=== PATIENT | female | born 1975 | race Caucasian/White ===

== ENCOUNTER → 2024-08-31 | Outpatient (CLI) | payer OTHER, SELFPAY ==
[2024-08-31 08:06] LABS: Collection Type, Urine Clean Catch
[2024-08-31 08:36] LABS: Basophils # (Auto) 0.1 Thou/mm3 (0.0-0.2); Basophils % (Auto) 1 % (0-2.5); Eosinophils # (Auto) 0.1 Thou/mm3 (0.0-0.5); Eosinophils % (Auto) 2 % (0-10); Hematocrit 36.9 % (36.0-46.0); Hemoglobin 12.2 g/dL (12.0-16.0); Immature Granulocytes % (Auto) 0 % (0-0); Immature Granulocytes Auto 0.01 Thou/mm3 (0.00-0.00); Lymphocytes # (Auto) 1.7 Thou/mm3 (1.0-4.8); Lymphocytes % (Auto) 29 % (10-50); Mean Corpuscular HGB Conc 33.1 g/dl (31.0-37.0); Mean Corpuscular Volume 97 fL (80-100); Monocytes # (Auto) 0.5 Thou/mm3 (0.0-0.8); Monocytes % (Auto) 9 % (0-12); Neutrophils # (Auto) 3.6 Thou/mm3 (1.8-7.7); Neutrophils % (Auto) 60 % (37-80); Nucleated Red Blood Cell % 0 /100 WBC (0); Platelet Count 179 Thou/mm3 (140-440); RDW Standard Deviation 42.7 fL (36.4-46.3); Red Blood Count 3.81 Miln/mm3 (4.00-5.20)
[2024-08-31 08:39] LABS: Bacteria,Urine Rare; Bilirubin,Urine Negative (Negative); Blood,Urine Negative (Negative); Clarity,Urine Clear (Clear/Hazy); Color,Urine Yellow (Lt Yel-Yel); Culture Indicated,Urine Not Indicated; Glucose, Urine Negative (Negative); Ketones,Urine Negative (Negative); Leukocyte Esterase,Urine Negative (Negative); Nitrite,Urine Negative (Negative); Protein,Urine Trace (Neg - Trace); RBC,Urine 4 /hpf (0-3); Specific Gravity,Urine 1.022 (1.001-1.035); Squamous Epithelial Cell,Urine 5 /hpf (0-5); Urobilinogen,Urine Negative mg/dL (0.0-1.0); WBC,Urine 5 /hpf (0-5)
[2024-08-31 08:46] LABS: Alanine Aminotransferase 14 U/L (10-49); Albumin, Serum 4.6 gm/dL (3.5-5.0); Albumin/Globulin Ratio 2.2 (1.2-2.2); Alkaline Phosphatase 61 U/L (46-116); Anion Gap 6 (7-16); BUN/Creatinine Ratio 11 Ratio (12-20); Blood Urea Nitrogen 9 mg/dL (9-23); Calcium 9.4 mg/dL (8.3-10.6); Calcium (Corrected) 9.4 mg/dL (8.5-10.1); Carbon Dioxide 30.4 mMol/L (20.0-31.0); Cardiac Risk Estimate 3.3 RATIO (3.7-5.6); Chloride 104 mMol/L (98-107); Cholesterol 202 mg/dL (132-200); Creatinine (Component) 0.8 mg/dL (0.6-1.3); Free T4 (Free Thyroxine) 1.11 ng/dL (0.89-1.76); Globulin 2.1 gm/dL (2.3-3.5); Glucose 86 mg/dL (74-106); HDL Cholesterol 62 mg/dL (40-60); LDL Cholesterol,Calculated 128 mg/dL (0-130); Osmolality,Calculated 277 (275-295); Potassium 4.1 mMol/L (3.4-5.1); Sodium 140 mMol/L (136-145); Thyroid Stimulating Hormone 2.39 uIU/mL (0.55-4.78); Total Protein 6.7 gm/dL (5.7-8.2); Triglycerides 58 mg/dL (30-150); eGFR > 60 See Note
[2024-08-31 08:49] LABS: Vitamin D 25 Hydroxy Total 16.7 ng/mL (7.3-40.2)
[2024-08-31 09:01] LABS: Aspartate Amino Transferase < 8 U/L (0-34)
[2024-08-31 09:40] LABS: T4 (Thyroxine) 6.1 mcg/dL (4.5-10.9)
[2024-09-05 06:54] LABS: T3,Total* 92 ng/dL (76-181); Thyroglobulin Antibodies* <1 IU/mL (< OR = 1); Thyroid Peroxidase Antibodies* 1 IU/mL (<9)
== END | disposition home or self-care (01) ==
LOC: COPL 06:43
PROVIDERS: PCP Family Medicine; Referring Provider Nurse Practitioner Family; Visit Provider Nurse Practitioner Family
DX: Z00.00 Encounter for general adult medical examination without abnormal findings (principal); N39.0 Urinary tract infection, site not specified; E55.9 Vitamin D deficiency, unspecified; E03.9 Hypothyroidism, unspecified; Z13.0 Encounter for screening for diseases of the blood and blood-forming organs and certain disorders involving the immune mechanism; Z13.29 Encounter for screening for other suspected endocrine disorder; Z13.220 Encounter for screening for lipoid disorders; Z13.1 Encounter for screening for diabetes mellitus; Z83.3 Family history of diabetes mellitus; Z13.89 Encounter for screening for other disorder; Z13.21 Encounter for screening for nutritional disorder
CPT/HCPCS: 36415; 80053; 80061; 81001; 82306; 84436; 84439; 84443; 84480; 85025; 86376; 86800

== ENCOUNTER 2025-06-07 20:32 | Emergency (ER) | payer OTHER, SELFPAY ==
[2025-06-07 20:32] VITALS: BMI 21.6
--- NOTE | 2025-06-07 22:10 | PD.EDADDENDU ---
Emergency Room Addendum Addendum Narrative: When I looked for the patient to start my evaluation, I was told the patient eloped. Dominic Augustin MD
--- NOTE | 2025-06-07 22:20 | PC.NURSE ---
called for pt from lobby/outside, no [phone] [phone]
--- NOTE | 2025-06-07 23:41 | PC.NURSE ---
PT WAS CALLED THREE TIMES [phone], [id number], [id number] N/A.
== END 2025-06-07 23:40 | disposition left against medical advice (07) ==
PROVIDERS: Emergency Provider Emergency Medicine
DX: Z53.21 Procedure and treatment not carried out due to patient leaving prior to being seen by health care provider (principal)
CPT/HCPCS: 99281

== ENCOUNTER 2025-06-07 23:56 | Emergency (ER) | payer OTHER, SELFPAY ==
[2025-06-07 23:57] VITALS: BMI 21.6
[2025-06-08 00:17] VITALS: BP 95/67; PULSE 118; RESP 18; TEMP 37.1; O2SAT 97
--- NOTE | 2025-06-08 00:43 | XR_ITS ---
Examination: CT abdomen with intravenous contrast CT pelvis with intravenous contrast 2-D coronal reconstructions 2-D sagittal reconstructions Date and time of exam:June 08, 2025, 0200 hrs.,. Indications: Abdominal pain, nausea vomiting diarrhea, no bowel movement 9 hours.. CTDI: vol (mGy) 5. DLP: (mGycm) 294. Technique: Multiple axial sections of the abdomen and pelvis have been obtained. 64 slice high-resolution scanner used. 3 mm axial sections have been obtained, post intravenous injection 60 cc [id number]. 2-D sagittal, coronal reconstructions obtained. Low dose protocols were performed. One or more of the following dose reduction techniques were used; automated exposure control, adjustment of the mA and/or KV according to patient size, use of iterative reconstruction technique. Findings: No focal liver or splenic lesions. Cholelithiasis No renal or ureteral calculi, no hydronephrosis. Aorta normal size. Intrauterine device satisfactory position. Abundant stool in the rectum with wall thickening the rectum and mild free fluid in the pelvis Urinary bladder intact No pelvic mass Impression: Recommend hepatobiliary sonography follow-up to confirm cholelithiasis. Abundant stool in the rectum with probable proctitis pattern but clinical correlation advised Mild free fluid in the pelvis, consider pelvic sonography follow-up
--- NOTE | 2025-06-08 00:46 | PD.EDABDPN ---
ED Abdominal Pain RME/HPI General Chief Complaint: Abdominal Pain Stated complaint: ABD PAIN/NAUSEA/ DIARRHEA X 8HRS Time seen by provider: 06/08/25 00:05 Arrival date/time: 06/07/25 23:56 RME / HPI RME / HPI narrative: See [facility] for Dr. Augustin's HPI documentation. Related Data Home Medications ?Medication ?Instructions ?Recorded ?Confirmed aspirin 81 mg tablet,delayed 81 mg PO QDAY 09/07/18 03/29/19 release (Jonnathan Low Dose Aspirin) pravastatin 20 mg tablet 20 mg PO QDAY 09/07/18 03/29/19 Previous Rx's ?Medication ?Instructions ?Recorded magnesium hydroxide 2,400 mg/10 mL 30 ml PO QDAY PRN constipation #60 06/08/25 oral suspension (Milk Of Magnesia mL Concentrated) sennosides 8.6 mg-docusate sodium 4 tab-cap (4 x 8.6-50 mg) PO QDAY 06/08/25 50 mg tablet (Senokot-S) PRN constipation #20 tabs Allergies Allergy/AdvReac Type Severity Reaction Status Date / Time No Known Allergies Allergy Verified 03/29/19 13:13 Review of Systems Review of Systems Systems Reviewed: All systems reviewed, normal except as documented Past Medical History Past Medical History NEUROLOGIC: Positive Neurological Disorders and Migraine CARDIAC: Negative Congestive Heart Failure RESPIRATORY: Negative Chronic Obstructive Pulmonary Disease (COPD) GASTROINTESTINAL: Positive Gastrointestinal Disorders and Ulcerative Colitis GENITOURINARY: Positive Genitourinary Disorders and Kidney Stones; Negative Renal Disease ENDOCRINE: Negative Diabetes Mellitus Type 1 or Diabetes Mellitus Type 2 Social History SMOKING STATUS: Never smoker ED Exam Narrative Physical exam: See [facility] for Dr. Augustin's physical exam documentation. Course Quality Measures none Orders Category Date Time Status Bedside COVID-19 Antigen Test NOW Care 06/08/25 00:43 Completed Bedside Influenza A&B Antigen Test NOW Care 06/08/25 00:[address] Screening NOW Care 06/08/25 00:43 Completed Saline [Insert IV] NOW Care 06/08/25 00:[address] abdomen pelvis w con Stat Exams 06/08/25 00:43 Completed US abdomen limited Stat Exams 06/08/25 01:05 Completed Amylase Stat Lab 06/08/25 00:54 Completed Bilirubin,Direct Stat Lab 06/08/25 00:54 Completed CBC Stat Lab 06/08/25 00:54 Completed CMP [Comprehensive Metabolic Panel] Stat Lab 06/08/25 00:54 Completed HCG,Qualitative Serum Stat Lab 06/08/25 00:54 Completed Lipase Stat Lab 06/08/25 00:54 Completed Magnesium Stat Lab 06/08/25 00:54 Completed UA, C/S IF [Urinalysis, C/S if Indicated] Stat Lab 06/08/25 02:33 Completed Ketorolac Inj [Toradol Inj] Med 06/08/25 00:43 Discontinued 30 mg IVP X1 ONE Morphine* Inj Med 06/08/25 00:43 Discontinued 4 mg IV X1 ONE Ondansetron Inj [Zofran Inj] Med 06/08/25 00:43 Discontinued 4 mg IVP X1 ONE Sodium Chloride 0.9% 1000 ml [Ns] 1,000 ml Med 06/08/25 00:43 Discontinued IV 999 mls/hr Vital Signs Vital signs: Vital Signs Temperature 98.7 F 06/08/25 00:17 Pulse Rate 118 H 06/08/25 00:17 Respiratory Rate 18 06/08/25 00:17 Blood Pressure 95/67 06/08/25 00:17 Pulse Oximetry (%) 97 06/08/25 00:17 Oxygen Delivery Method Room Air 06/08/25 00:17 Abdominal Pain MDM MDM Narrative MDM Narrative:: This section includes all my notes and documentations, including HPI, PE, and ED course. Dominic Augustin MD HPI: 49yo female here with abdominal pain, nausea, and constipation for the last couple weeks. No vomiting or fever. No other complaints reported. ROS: All negative except as documented in HPI. Physical Exam: General: Alert and oriented. No acute distress when remaining still. Eyes: Conjunctivae and lids clear. ENT: No nasal congestion. Neck: Supple. Heart: RRR. Lungs: No respiratory distress. Good air movement. No rhonchi, wheezing, rales. Abdomen: Soft and mild diffuse tenderness, dificult to localize. Normal bowel sounds. No distension. No rebound or guarding. Skin: Warm and dry. Neuro: Alert and oriented X 3. I reviewed all diagnostic test results. My review of the abdominal US report is NAD. My review of the CT abdomen pelvis report is constipation. Blood and urine tests unremarkable. At this point, diagnoses include: Constipation Treatment here included: Zofran IV fluid Patient refused Morphine and Toradol. Recommended conservative management. Based on my best medical judgment, made decision no further evaluation or treatment indicated at this time. Patient understands and agrees to the discharge instructions customized and printed, see below. Discharge instructions from Dr. Augustin printed for you: ?After extensive evaluation, there is no emergency. Such as bowel obstruction. -You have severe constipation. ?Senokot S (not plain Senokot, OTC so prescription not needed), four pills, at bedtime as needed. Add milk of magnesia as prescribed. May take a few days but this will help clear out your bowels. ?To help current constipation and prevent future constipation, increase oral fluid because dehydration cause severe constipation. Maintain clear urine. If dark or yellow, increase oral fluid. ?And every day, increase fresh fruits and fresh vegetables and physical exercise. --And you have solid poop in your rectum. So we need to evacuate this to resolve your constipation. Wear a glove with KY jelly and inserted digits into the rectum. And manually evacuate out the poop is much as possible. Otherwise, you will need to be put to sleep for evacuation, possibly in operating room. ?See a private doctor on for recheck and further care. To make sure there is no serious underlying abdominal condition, ask to help you get more care not available here in the ER. Such as EGD or scoping of your stomach, colonoscopy or scoping the colon, and a referral to see a section 8 property manager. Ask to review all test results and official radiology reports, to make sure you receive all necessary follow-ups and monitoring. ?Seek immediate medical care with worsening or with any concerns. Dominic Augustin MD Patient data External records reviewed:: [facility] previous records (Per chart review, patient was seen here on 08/15/21 for abdominal pain.) Clinical information provided by:: patient Social determinants that could affect healthcare access:: none Patient has the following chronic illnesses:: none How is presenting disease/condition affected by chronic disease/condition?: no chronic disease Evaluation data The following diagnostics were reviewed and interpreted by me:: lab results and radiology exam(s) Lab and/or radiology exams considered but not ordered:: none Interpretation Summary: I reviewed all diagnostic test results. My review of the abdominal US report is NAD. My review of the CT abdomen pelvis report is constipation. Blood and urine tests unremarkable. Medications / Prescriptions Medications or Prescriptions considered but not ordered:: none Medication administrations:: Medication Administration History Discontinued Medications Sodium Chloride (Ns) 1,000 mls @ 999 mls/hr IV .Q1H1M ONE Stop: 06/08/25 01:43 Last Infusion: 06/08/25 03:32 Dose: Infused Documented By: Admin: 06/08/25 01:17 Dose: 999 mls/hr Documented By: NARESH Ketorolac Tromethamine (Ketorolac Inj 30 Mg/Ml Vial) 30 mg IVP X1 ONE Stop: 06/08/25 00:44 Last Admin: 06/08/25 03:40 Dose: Not Given Documented By: NARESH Non-Admin Reason: Patient Refused Morphine Sulfate (Morphine Sulf Inj 4 Mg/Ml Vial) 4 mg IV X1 ONE Stop: 06/08/25 00:44 Last Admin: 06/08/25 03:40 Dose: Not Given Documented By: NARESH Non-Admin Reason: Patient Refused Ondansetron HCl (Ondansetron Inj 2 Mg/Ml Inj 2 Ml) 4 mg IVP X1 ONE; Protocol Stop: 06/08/25 00:44 Last Admin: 06/08/25 03:02 Dose: 4 mg Documented By: SE Stella IV fluid Consultations Consultation(s) initiated? (list below): No Diagnosis Differential diagnosis abdominal pain: acute appendicitis, calculus of kidney, constipation, diverticulitis, endometriosis, gastroenteritis, pancreatitis and small bowel obstruction Most likely diagnosis given after review of the tests above:: Constipation Admission Indicated Admission indicated?: not indicated Explain why admission is indicated or not indicated:: With no condition needing emergent intervention, there was no indication for admission. Admission Request Was there a request for admission?: No Disposition Plan Disposition Plan: Discharge Discharge Attestation Discharge Attestation: The patient and all family members were given an opportunity to ask questions and understood the discharge instructions. Discharge instructions specifically effects, indications for sooner follow up or return to the emergency department, and the expected course of current diagnosis. Patient condition: Stable Discharge Plan Plan Patient Disposition: HOME (Self Care) Prescriptions/Referrals Prescriptions/Med Rec: New magnesium hydroxide [Milk Of Magnesia Concentrated] 2,400 mg/10 mL suspension 30 ml PO QDAY PRN (Reason: constipation) Qty: 60 0RF sennosides-docusate sodium [Senokot-S] 8.6-50 mg tablet 4 tab-cap PO QDAY PRN (Reason: constipation) Qty: 20 0RF No Action aspirin [Jonnathan Low Dose Aspirin] 81 mg Tablet,Delayed Release (Dr/Ec) 81 mg PO QDAY pravastatin 20 mg Tablet 20 mg PO QDAY Referrals: Temporary Provider,ED [Physician, Emergency Medicine] - In 1 week Problem List Clinical Impression: Constipation Patient/Caregiver Discharge Instructions Discharge Activity: activity as tolerated Education Materials: ED Constipation (Adult) Additional Instructions: Discharge instructions from Dr. Augustin printed for you: ?After extensive evaluation, there is no emergency.? Such as bowel obstruction. -You have severe constipation. ?Senokot S (not plain Senokot, OTC so prescription not needed), four pills, at bedtime as needed.? Add milk of magnesia as prescribed. May take a few days but this will help clear out your bowels. ?To help current constipation and prevent future constipation, increase oral fluid because dehydration cause severe constipation.? Maintain clear urine.? If dark or yellow, increase oral fluid. ?And every day, increase fresh fruits and fresh vegetables and physical exercise. --And you have solid poop in your rectum. So we need to evacuate this to resolve your constipation. Wear a glove with KY jelly and inserted digits into the rectum. And manually evacuate out the poop is much as possible. Otherwise, you will need to be put to sleep for evacuation, possibly in operating room. ?See a private doctor on for recheck and further care. To make sure there is no serious underlying abdominal condition, ask to help you get more care not available here in the ER.? Such as EGD or scoping of your stomach, colonoscopy or scoping the colon, and a referral to see a section 8 property manager. Ask to review all test results and official radiology reports, to make sure you receive all necessary follow-ups and monitoring. ?Seek immediate medical care with worsening or with any concerns. Print Language: Chinese Stand Alone Forms: Anna Award Info., Patient Portal Info Letter
[2025-06-08 01:01] LABS: Basophils # (Auto) 0.0 Thou/mm3 (0.0-0.2); Basophils % (Auto) 0 % (0-2.5); Eosinophils # (Auto) 0.0 Thou/mm3 (0.0-0.5); Eosinophils % (Auto) 0 % (0-10); Hematocrit 35.3 % (36.0-46.0); Hemoglobin 11.9 g/dL (12.0-16.0); Immature Granulocytes Auto 0.06 Thou/mm3 (0.00-0.00); Lymphocytes # (Auto) 0.7 Thou/mm3 (1.0-4.8); Lymphocytes % (Auto) 4 % (10-50); Mean Corpuscular HGB Conc 33.7 g/dl (31.0-37.0); Mean Corpuscular Hemoglobin 32.4 pg (25.0-35.0); Mean Corpuscular Volume 96 fL (80-100); Monocytes # (Auto) 0.8 Thou/mm3 (0.0-0.8); Monocytes % (Auto) 4 % (0-12); Neutrophils # (Auto) 17.2 Thou/mm3 (1.8-7.7); Neutrophils % (Auto) 91 % (37-80); Nucleated Red Blood Cell # 0.00 Thou/mm3 (0.00-0.00); Nucleated Red Blood Cell % 0 /100 WBC (0); Platelet Count 208 Thou/mm3 (140-440); RDW Standard Deviation 42.5 fL (36.4-46.3); Red Blood Count 3.67 Miln/mm3 (4.00-5.20); White Blood Count 18.8 Thou/mm3 (3.6-11.0)
--- NOTE | 2025-06-08 01:05 | XR_ITS ---
Examination: Abdomen sonogram, Limited Date and time of exam: June 08, 2025, 0209 hrs. Indications: Onset generalized abdominal pain beginning 2 days ago. Technique: Real-time peters scale transabdominal sonographic images of the upper abdomen obtained. Findings: Normal gallbladder. Normal common bile duct 0.2 cm. Pancreatic head 1.6 cm. Liver 16.2 cm no liver lesions Normal hepatopedal portal venous flow Patent IVC. Impression: Normal gallbladder.
[2025-06-08] MEDS: SODIUM CHLORIDE 0.9% 1000 ML 1,000 ML 999 ML IV (01:17)
[2025-06-08 01:25] LABS: Alanine Aminotransferase 14 U/L (10-49); Albumin, Serum 4.6 gm/dL (3.5-5.0); Albumin/Globulin Ratio 2.3 (1.2-2.2); Alkaline Phosphatase 57 U/L (46-116); Amylase 37 U/L (30-118); Anion Gap 10 (7-16); Aspartate Amino Transferase 12 U/L (0-34); BUN/Creatinine Ratio 11 Ratio (12-20); Bilirubin,Direct 0.2 mg/dL (0.0-0.3); Bilirubin,Total 0.8 mg/dL (0.3-1.2); Blood Urea Nitrogen 8 mg/dL (9-23); Calcium 9.4 mg/dL (8.3-10.6); Calcium (Corrected) 9.4 mg/dL (8.5-10.1); Carbon Dioxide 26.4 mMol/L (20.0-31.0); Chloride 104 mMol/L (98-107); Creatinine (Component) 0.7 mg/dL (0.6-1.3); Estimated Creatinine Clearance 88.4 mL/min (>60); Globulin 2.0 gm/dL (2.3-3.5); Glucose 141 mg/dL (74-106); Lipase 27 U/L (12-53); Magnesium 1.8 mg/dL (1.6-2.6); Osmolality,Calculated 279 (275-295); Potassium 4.2 mMol/L (3.4-5.1); Sodium 140 mMol/L (136-145); Total Protein 6.6 gm/dL (5.7-8.2); eGFR > 60 See Note
[2025-06-08 01:30] LABS: HCG,Qualitative Serum Negative
[2025-06-08 02:47] LABS: Collection Type, Urine Clean Catch
--- NOTE | 2025-06-08 02:50 | PRELIM_ITS ---
CT abdomen and pelvis with intravenous contrast. Axial images with coronal and sagittal reconstructions. Clinical history: Abdominal pain and no bowel movement. Findings: The lung bases are clear. Liver, adrenal glands, spleen and pancreas unremarkable. Nonobstructing left renal calculi. Small bilateral renal cysts. Normal gallbladder. The urinary bladder is normal. Rectum is distended, 6.4 cm in diameter. There is prominent rectal wall thickening and perirectal fat stranding. No free intraperitoneal air or fluid. There is an intrauterine contraceptive device in normal position in the uterine fundus. There is no adnexal cyst or mass. Bowel caliber is normal. The appendix is normal, best seen on image 127. No acute osseous process. 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 Report Electronically Signed By: Seth Vasquez 06/08/2025 2:49:46 AM [EST]
[2025-06-08] MEDS: ONDANSETRON INJ 2 MG/ML INJ 2 ML 4 MG IVP (03:02)
[2025-06-08 03:06] LABS: Bacteria,Urine Rare; Bilirubin,Urine Negative (Negative); Blood,Urine Trace (Negative); Clarity,Urine Clear (Clear/Hazy); Color,Urine Colorless (Lt Yel-Yel); Culture Indicated,Urine Not Indicated; Glucose, Urine Negative (Negative); Ketones,Urine Negative (Negative); Leukocyte Esterase,Urine Negative (Negative); Nitrite,Urine Negative (Negative); PH,Urine 7.0 (5.0-7.0); Protein,Urine Negative (Neg - Trace); RBC,Urine < 1 /hpf (0-3); Specific Gravity,Urine 1.015 (1.001-1.035); Squamous Epithelial Cell,Urine 1 /hpf (0-5); Urobilinogen,Urine Negative mg/dL (0.0-1.0); WBC,Urine 2 /hpf (0-5)
--- NOTE | 2025-06-08 03:38 | PRELIM_ITS ---
Gallbladder ultrasound (Limited). June 08, 2025 at 0209 hours Clinical history: Abdominal pain. Correlated to CT same date. Findings: Gallbladder wall is 2 mm thick. Patient was nontender over the gallbladder. No cholelithiasis or gallbladder sludge. Common bile duct is 2 mm in diameter. Pancreas is unremarkable. Liver is 16.2 cm long. No focal hepatic lesion. No free fluid. Main portal vein is antegrade. Impression: Normal exam. Report Electronically Signed By: Seth Vasquez 06/08/2025 3:38:04 AM [EST]
== END 2025-06-08 03:46 | disposition home or self-care (01) ==
PROVIDERS: Emergency Provider Emergency Medicine; PCP Family Medicine
DX: K59.00 Constipation, unspecified (principal); R11.2 Nausea with vomiting, unspecified; R19.7 Diarrhea, unspecified; R10.84 Generalized abdominal pain
CPT/HCPCS: 36415; 74177; 76705; 80053; 81001; 82150; 82248; 83690; 83735; 84703; 85025; 87400; 87811; 96361; 96374; 99284; A4649; J2405; J7030; Q9967